=== PATIENT | male | born 1945 | race Caucasian/White ===

== ENCOUNTER → 2024-01-07 06:46 | Outpatient (REF) | payer OTHER, SELFPAY | LOC: MRI 06:46 | PROVIDERS: ATTENDING PHYSICIAN Orthopaedic Surgery; FAMILY PHYSICIAN Family Medicine | DX: M25.512 Pain in left shoulder (principal) | CPT/HCPCS: 73221 ==

== ENCOUNTER 2024-02-17 12:19 | Inpatient (IN) | payer OTHER, SELFPAY ==
[2024-02-17] VITALS (13 sets, daily range): BP systolic 81–140; BP diastolic 53–86; PULSE 105–116; BMI 34.9
--- NOTE | 2024-02-17 09:38 | ED.PDOC.TR ---
ED Provider Triage
-
Patient seen by provider in Triage?: Seen in Triage
78-year-old male presenting to the emergency department for evaluation of black stools x 24 hours. History of gastric ulcer. Had diarrhea at onset. Minimal p.o. intake over the last 12+ hours. Known to Dr. Crum from GI. No lightheaded/dizzy.
[place] 'clammy' yesterday. stating patient has looked pale. Labs ordered.
[2024-02-17] MEDS: NSS 1000 IV ×2 (10:07→16:14)
[2024-02-17 10:22] LABS: % Basophils 0.4 % (0-2); % Eosinophils 0.1 % (0-6); % Immature Granulocytes 0.7 % (0-0.5); % Lymphocytes 15.2 % (20.5-51.1); % Monocytes 7.6 % (1.7-9.3); Absolute Basophils 0.1 10^3/uL (0-0.2); Absolute Immature Granulocytes 0.1 10^3/uL (0-0.05); Absolute Lymphocytes 2.1 10^3/uL (1.2-3.4); Absolute Neutrophils 10.3 10^3/uL (1.4-6.5); Hematocrit 29.4 % (39.0-52.0); Hemoglobin 9.9 g/dL (13.0-18.0); Mean Corp Hgb Conc. 33.7 g/dL (33.0-37.0); Mean Corpuscular Hgb 30.8 pg (27.0-31.0); Mean Corpuscular Volume 91.6 fL (80.0-94.0); Nucleated Red Blood Cells % 0 % (-); Platelet Count 232 10^3/uL (130-400); Red Blood Cell Count 3.21 10^6/uL (4.70-6.10); Red Cell Dist. Width 13.7 % (11.5-14.5); White Blood Cell Count 13.6 10^3/uL (4.8-10.8)
[2024-02-17 10:26] LABS: ALT (SGPT) 27 U/L (0-50); AST (SGOT) 22 U/L (17-59); Albumin 3.7 g/dl (3.5-5.0); Alkaline Phosphatase 65 U/L (38-126); Blood Urea Nitrogen 84 mg/dl (9-20); Carbon Dioxide 18 mmol/L (22-30); Chloride 114 mmol/L (98-107); Estimated Creatinine Clearance 34 ml/min; Glucose 177 mg/dl (70-99); INR 1.08; PT 14.1 Sec (11.4-14.6); Potassium 5.3 mmol/L (3.5-5.1); Sodium 143 mmol/L (135-145); Total Bilirubin 0.9 mg/dl (0.2-1.3); Total Protein 6.2 g/dl (6.3-8.2); eGFR 33.74
--- NOTE | 2024-02-17 10:56 | ED.GENMED ---
History of Present Illness
General
Chief Complaint: Rectal Bleeding
Source: patient
Exam Limitations: none
Time Seen by Provider: 02/17/24 10:52
Nursing documentation reviewed up to this point in time: agreed with
Travel History
Have you had any contact with someone who has COVID-19?: No
Do you have any symptoms of coronavirus? Fever > 100 degrees, chills, cough, shortness of breath, sore throat, loss of taste or smell, muscle aches, or headache?: No
History of Present Illness
History of Present Illness:
Patient is a 78-year-old male who presents to the ER with rectal bleeding. Patient started Wednesday night with black stool intermittent diarrhea and formed stool. He also vomited a little bit Wednesday night which was black in color. He is not on
blood thinners. Patient does have a history of previous GI bleed from Jose A lesions and hiatal hernia. He has a history of chronic kidney disease stage III AL bypass. He is not on blood thinners. He denies any abdominal pain.
Past History
Past History
ED Past Medical History: CAD and HTN
Social History
Tobacco: Non-smoker
Alcohol: None
Drug: None
Review of Systems
Review of Systems
Allergies reviewed?: Yes
All Other Systems: ROS reviewed and negative except as documented in HPI and ROS
Constitutional: Reports no symptoms
Respiratory: Reports no symptoms; Denies trouble breathing
Cardiac: Reports no symptoms
ABD/GI: Reports nausea, vomiting, bloody stools and other (vomited once black emesis )
: Reports no symptoms
Skin: Reports no symptoms
Neurological: Reports no symptoms
Psychiatric: Reports no symptoms
Phy Exam
General Physical Exam
General Presentation: no apparent distress
General age: appears stated age
General Skin: warm and dry
General Habitus: normal
General Mental: alert
General Hydration: appears well hydrated
Gastrointestinal Exam
Gastrointestinal Exam: non tender, soft and other (stool is black heme positive no active bleeding )
Neurological Exam
Neurological Exam: alert and oriented x3
Musculoskeletal Exam
Musculoskeletal Exam: full ROM
Skin Exam
Skin Exam: normal color and warm/dry
Psychiatric Exam
Psychiatric Exam: normal mood/affect
Course
Orders/Labs/Results
Orders:
Orders
02/17/24 09:41
Electrocardiogram (*1) Urgent
Reason for Study: Tachycardia
EKG- Treatment ONCE
02/17/24 09:53
Type+Screen Urgent
Complete Blood Count/With Diff Urgent
Comprehensive Metabolic Panel Urgent
Glycohemoglobin (HgbA1c) Urgent
PTT Urgent
Prothrombin Time Urgent
02/17/24 Lunch
NPO
Allow oral meds: Yes
Allow clear liquids: No
NPO with Ice Chips: Yes
02/17/24 10:06
0.9% Sodium Chloride 1000 ml [Nss] 1,000 ml IV BOLUS
02/17/24 11:08
Pantoprazole 80 mg/100 ml Nss [Protonix] 80 mg in 100 ml IV NOW
Pantoprazole [Protonix IV] 40 mg IV NOW STA
02/17/24 11:44
Add On- LAB Routine
Tests Added?: HBA1C
02/17/24 12:07
Admit/Transfer Patient As Directed
Co-Sign Provider:
Level of Care: Inpatient admission
Assign to:: IMU- Intermediate Care
Physician / Group: Hospitalist
Diagnosis: Melena
Reason for Hospitalization: Melena, Anemia, Tachy
Expected length of stay greater than two midnights?: Yes
ELOS- Estimated Length of Stay in days: 2
I certify the patient meets the requirements for IP care: Yes
02/17/24 12:10
Code Status As Directed
Resuscitation Status: Full Code
02/17/24 14:13
H&H Q8H
0.9% Sodium Chloride 1000 ml [Nss] 1,000 ml IV 80 mls/hr
02/17/24 14:13
GASTROINTESTINAL CONSULT Routine
Consulting Provider: Oswaldo Santiago
Was physician already notified: Yes
Reason for consult: melena
Activity As Directed
Activity Level: With Assistance
Bedside Commode
INT (Intravenous Needle Therapy) As Directed
Comment: Place 2 IV catheters of the largest bore possible until stable
Orthostatic Vital Signs As Directed
Orthostatic VS Frequency: Now
Comment: then every four hours for twenty-four hours
Pneumatic Compression Sleeves As Directed
Type: Knee high
Vital Signs As Directed
Frequency: Per unit guidelines
DX Deep Vein Thrombosis Video Routine
02/17/24 22:13
H&H Q8H
02/18/24 06:00
Basic Metabolic Panel IN AM
Complete Blood Count/No Diff IN AM
02/18/24 06:13
H&H Q8H
02/18/24 08:00
Atorvastatin [Lipitor] 20 mg PO DAILY
Metoprolol Xl [Toprol Xl] 50 mg PO DAILY
Abnormal Lab Results
02/17/24
09:53
WBC 13.6 H 10^3/uL
(4.8-10.8)
RBC 3.21 L 10^6/uL
(4.70-6.10)
Hgb 9.9 L g/dL
(13.0-18.0)
Hct 29.4 L %
(39.0-52.0)
MPV 11.0 H fL
(7.4-10.4)
Abs Immat Gran (auto) 0.1 H 10^3/uL
(0-0.05)
Absolute Neuts (auto) 10.3 H 10^3/uL
(1.4-6.5)
Absolute Monos (auto) 1.0 H 10^3/uL
(0.1-0.6)
Immature Gran % 0.7 H %
(0-0.5)
Neutrophils % 76.0 H %
(42.2-75.2)
Lymphocytes % 15.2 L %
(20.5-51.1)
APTT 22.0 L Sec
(23.4-35.0)
Potassium 5.3 H mmol/L
(3.5-5.1)
Chloride 114 H mmol/L
(98-107)
Carbon Dioxide 18 L mmol/L
(22-30)
BUN 84 H mg/dl
(9-20)
Creatinine 2.0 H mg/dL
(0.7-1.3)
Glucose 177 H mg/dl
(70-99)
Hemoglobin A1c 6.2 H %
(4.0-5.6)
Total Protein 6.2 L g/dl
(6.3-8.2)
02/17/24 09:53
02/17/24 09:53
Vital Signs
Initial and Last Documented VS:
Initial Vital Signs
Temp Pulse Resp BP Pulse Ox
98.4 F 150 18 140/86 100
02/17/24 09:37 02/17/24 09:37 02/17/24 09:37 02/17/24 09:37 02/17/24 09:37
Last Documented Vital Signs
Temp Pulse Resp BP Pulse Ox
98.4 F 125 24 134/81 99
02/17/24 09:37 02/17/24 13:45 02/17/24 13:45 02/17/24 11:00 02/17/24 13:45
MDM/Problems Addressed
Differential Diagnosis Includes:
Not limited to anemia GI bleed
MDM/Problems Addressed:
Patient is a 78-year-old male with history of GI bleed presents with black stool since Wednesday. He presented tachycardic in triage fluids were given in triage prior to my exam. Patient labs and typed and screened prior to my exam. He is awake
alert he is answering questions and stable. Heart rate still remains tachycardic in the 130s. His hemoglobin is 9.9. Last hemoglobin as per was 13 3 weeks ago as an outpatient. On rectal exam patient has black stool but no active bleeding.
He has stable abdomen soft nontender. IV Protonix bolus and drip ordered type and screen ordered patient mid to the hospital service.
*Critical Care Note
Total Time (30-74mins, 75-104mins- exclusive of procedures): Not Applicable
ED Attending Note
-
Portions of this chart may have been created with voice recognition software.� Occasional wrong word or��sound alike� substitutions may have occurred due to the inherent limitations of voice recognition software.
Discharge Plan
Departure
Patient Disposition: Admit
Date of Disposition: 02/17/24
Time of Disposition: 11:10
Admit to: ICU
Admit to doctor: hospitalist
Presentation/result/management discussed w/ accepting MD/DO: Hospitalist
Patient with high blood pressure during this ER visit?: Yes
Condition: Fair
Covid-19: Not Applicable
Discharge Problem:
Acute GI bleeding
Interventions
Interventions:
*Risk Screen - Suicide Last Done: 02/17/24 14:11
*General Assessment Last Done: 02/17/24 14:11
*Neglect/Abuse Screening Last Done: 02/17/24 14:11
*Nursing Disposition Last Done: 02/17/24 14:11
XM-Mcpxzx-Itvmtogxsl Assessment Last Done: 02/17/24 09:56
ED- Cardiac Assessment Last Done: 02/17/24 09:55
Discharge Date and Time
Discharge Date/Time: 02/17/24 14:12
[2024-02-17] MEDS: PROTONIX IV 40 MG IV (11:28)
[2024-02-17] MEDS: PROTONIX 100 IV ×2 (11:28→16:21)
--- NOTE | 2024-02-17 11:35 | HPS.HSE ---
Addendum entered and electronically signed by Arnold Quiñones MD 02/18/24 16:22:
Correction- Left shoulder tear not right shoulder
Original Note:
Family Physician
-
Family Physician: Ricky Garzon
Chief Complaint
-
Black stools and tachycardia
History of Present Illness
78-year-old male presented to the ER with black stools which started Wednesday . Started with vomiting. He also had some vomiting on Wednesday night which is black. He has a history of GI bleed from Jose A lesions and hiatal hernia. Patient does
not take any anticoagulants. He is on aspirin. No NSAID use. No Chest pain or dizziness. Family reports his Hb was 13 a couple weeks ago
Medical History
Past Medical History
Past Medical History: Reports Other
Additional Past Medical History:
Coronary artery disease, hypertension, hyperlipidemia, history of GI bleed with Jose A lesions, hearing impairment, chronic kidney disease, hiatal hernia, cholelithiasis, nephrolithiasis, atrophic changes of the left kidney
Past Surgical History: Reports Other
Additional Past Surgical History:
History of CABG, history of abdominal surgery NOS
Social History
Tobacco: Former Smoker
Alcohol: Occasional
Drug: None
Personal:
Living: With Family
Employment: Retired
Family History
Family History: CAD (brother) and Other (Parkinson Mom)
Allergies / Home Medications
Allergies reflects when Allergies were last updated in [facility].
Home Medications with original date entered in [facility]
Allergy/Medication List:
Allergies
Allergy/AdvReac Type Severity Reaction Status Date / Time
No Known Allergies Allergy Unverified 04/23/20 20:52
Home Medications
aspirin 81 mg tablet,delayed release 81 mg PO DAILY Blood clot prevention/tx 04/24/20
atorvastatin 20 mg tablet 20 mg PO DAILY High cholesterol 04/24/20
metoprolol succinate 50 mg tablet,extended release 24 hr 50 mg PO DAILY Heart disease/condition 04/24/20
losartan 25 mg tablet 25 mg PO DAILY Blood Pressure 05/24/23
pantoprazole 40 mg tablet,delayed release 40 mg PO DAILY 02/17/24
Review of Systems
-
History Source: Patient
A 12 point ROS was completed and negative except as noted: Yes
Respiratory: Denies Trouble Breathing
Cardiac: Denies Chest Pain or Diaphoresis
Abdomen/GI: Reports Nausea, Vomiting, Black Stools and Anorexia; Denies Abdominal Pain
Physical Exam
Vital Signs
Vital Signs
Temp Pulse Resp BP Pulse Ox
98.4 F 132 18 132/80 100
02/17/24 09:37 02/17/24 10:56 02/17/24 09:37 02/17/24 10:55 02/17/24 10:56
Physical Exam
General: No Apparent Distress and Conversant
Respiratory: Clear
Cardiac: S1/S2, Regular Rhythm and Tachycardia
GI: Soft, Non Tender and Normal Bowel Sounds
Musculoskeletal: No Edema
Neuro: AO x 3 and Nonfocal/grossly intact
Psych: Intact Judgment/Insight
Laboratory Results
-
02/17/24 09:53
02/17/24 09:53
Laboratory Results
PT 14.1 Sec (11.4-14.6) 02/17/24 09:53
INR 1.08 02/17/24 09:53
APTT 22.0 Sec (23.4-35.0) L 02/17/24 09:53
Total Bilirubin 0.9 mg/dl (0.2-1.3) 02/17/24 09:53
AST 22 U/L (17-59) 02/17/24 09:53
ALT 27 U/L (0-50) 02/17/24 09:53
Alkaline Phosphatase 65 U/L (38-126) 02/17/24 09:53
Impression/Plan
-
IMPRESSION/PLAN:
# Melena
Admit to IMU
Type and screen
Monitor H&H Q8H
History of Jose A lesions in the past.
Has history of hiatal hernia
Patient is not on any anticoagulants. On aspirin only.
No NSAID use
PPI drip to be continued
GI consultation requested for EGD
IV fluids, keep n.p.o.
# Anemia-acute on chronic likely secondary to CKD and acute blood loss anemia from GI bleed
# Coronary disease-With history of CABG at [facility]
on aspirin, statin, metoprolol-continue as tolerated
Hold losartan
# History of enlarged peripancreatic lymph node on CT 09/23/2023
# Right shoulder full-thickness tear of the supraspinatus with tendinosis of the distal infraspinatus
# Hyperlipidemia-continue statin
# Hypertension-continue losartan and metoprolol
# Chronic kidney disease stage III-unclear reasons
Mild hyperkalemia noted. Hold losartan
# Left atrophic kidney/nephrolithiasis
# Cholelithiasis
# Obesity per BMI criteria
# DVT prophylaxis-SCDs
# CODE STATUS- Full
D/W ER attending
D/W at bed side
D/W GI
time 76 min
--- NOTE | 2024-02-17 13:43 | CON.GI ---
Addendum entered and electronically signed by Oswaldo Santiago MD 02/17/24 16:30:
I saw and examined the patient.
The INSPECTOR SHELLS or PA's note was reviewed and I agree with the note.
Comment:
Pt is a 78 y/o man with a CAD, htn, hiatal hernia, colin lesions with black stools, no abd pain, an episode of emesis. In ER tachycardic but hgb stable from baseline
abd: soft, nontender
impression:
tachycardia
leukocytosis
?melena
plan:
monitor hgb
EGD tomorrow
tachycardia does not seem all due to GI causes (and he did stop his metoprolol) and he does have a leukocytosis
PPI
clear liquids ok for now.
Original Note:
Consultation
-
Date/Time Consultation Requested: 02/17/24 1130
Date/Time Consultation Performed: 02/17/24 1345
Requesting Provider: Arnold Quiñones MD
Performing Provider: NIURKA Pop , Oswaldo Sands MD
Reason for Consultation: Gi bleeding
Medical History
Chief Complaint / HPI
Chief Complaint: black stools
History of Present Illness:
Pt is a 78yo with hx CAD prior CABG, CKD, HTN, hyperlipidemia, obesity, GI bleed with known large HH and colin lesions, nunez's with onset of black stools since Wednesday. Pt had 3-5 stools some loose and some with form with last stool hours
prior to admission and small amount of dark emesis. He denies NSAID or anticoagulation use. He is also noted with tachycardia on admission and admits he held all of his medication including cardiac med for past few days. On admission hbg 9.9, BuN
84 (baseline variable 30-90) with prior hbg 13 on 02/02/24.
Pt admits to occasional GERD with some symptoms Wednesday night but is no Protonix prior to admission He otherwise denies dysphagia, abdominal pain, dizziness, or red blood in stools. Hx EGD 07/2023 with Z line regular, 7 cm HH, normal
stomach and duodenum. Colonoscopy -07/2023- diverticulosis, 2 less than 1 mm polyps in rectum and cecum. 3 non bleeding colonic angiectasias. Internal hemorrhoids. 09/2023 CT with large HH greater than 50% stomach in lower chest.
Past Medical History
Past Medical History: CAD, HTN, Renal Failure (CKD) and Other (obesity, colin lesions, large HH, barett's esophagus, colon polyps )
Past Surgical History: Cardiac (CABG) and Other (hernia repair, cholelithasis)
Social History
Tobacco: Former Smoker (40 years ago )
Alcohol: Occasional (rare)
Drug: None
Personal:
Living: With Family
Employment: Retired
Family History
Family History: Other (no family hx colon Ca or polyps)
Allergies / Home Medications
Allergy/AdvReac Type Severity Reaction Status Date / Time
No Known Allergies Allergy Unverified 04/23/20 20:52
�Medication �Instructions �Recorded
aspirin 81 mg tablet,delayed 81 mg PO DAILY Blood clot 04/24/20
release prevention/tx
atorvastatin 20 mg tablet 20 mg PO DAILY High cholesterol 04/24/20
metoprolol succinate 50 mg 50 mg PO DAILY Heart 04/24/20
tablet,extended release 24 hr disease/condition
losartan 25 mg tablet 25 mg PO DAILY Blood Pressure 05/24/23
pantoprazole 40 mg tablet,delayed 40 mg PO DAILY 02/17/24
release
Review of Systems
-
History Source: Patient
Constitutional: Reports No Symptoms
EENT: Reports No Symptoms
Respiratory: Reports No Symptoms
Abdomen/GI: Reports Nausea, Vomiting and Black Stools
: Reports No Symptoms
Musculoskeletal: Reports No Symptoms
Skin: Reports No Symptoms
Neurological: Reports Weakness
Endocrine: Reports No Symptoms
Hematologic/Lymphatic: Reports Bleeding
Vital Signs
Temp Pulse Resp BP Pulse Ox
98.4 F 132 18 132/80 100
02/17/24 09:37 02/17/24 10:56 02/17/24 09:37 02/17/24 10:55 02/17/24 10:56
Physical Exam
Exam
General: Well Developed, Well Nourished and No Apparent Distress
HEENT: Normocephalic and Anicteric
Respiratory: Clear
Cardiac: Other (tachy 120-130 regular on monitor )
GI: Soft, Non Tender and Non Distended
Musculoskeletal: No Clubbing
Skin: Warm and Dry
Neuro: Awake, Alert and AO x 3
Psych: Calm
Results
WBC 13.6 10^3/uL (4.8-10.8) H 02/17/24 09:53
Hgb 9.9 g/dL (13.0-18.0) L 02/17/24 09:53
Hct 29.4 % (39.0-52.0) L 02/17/24 09:53
MCV 91.6 fL (80.0-94.0) 02/17/24 09:53
Plt Count 232 10^3/uL (130-400) 02/17/24 09:53
Absolute Neuts (auto) 10.3 10^3/uL (1.4-6.5) H 02/17/24 09:53
PT 14.1 Sec (11.4-14.6) 02/17/24 09:53
INR 1.08 02/17/24 09:53
APTT 22.0 Sec (23.4-35.0) L 02/17/24 09:53
Sodium 143 mmol/L (135-145) 02/17/24 09:53
Potassium 5.3 mmol/L (3.5-5.1) H 02/17/24 09:53
Chloride 114 mmol/L (98-107) H 02/17/24 09:53
Carbon Dioxide 18 mmol/L (22-30) L 02/17/24 09:53
BUN 84 mg/dl (9-20) H 02/17/24 09:53
Creatinine 2.0 mg/dL (0.7-1.3) H 02/17/24 09:53
Calcium 9.0 mg/dl (8.4-10.2) 02/17/24 09:53
Total Bilirubin 0.9 mg/dl (0.2-1.3) 02/17/24 09:53
AST 22 U/L (17-59) 02/17/24 09:53
ALT 27 U/L (0-50) 02/17/24 09:53
Alkaline Phosphatase 65 U/L (38-126) 02/17/24 09:53
Diagnostic Image Results:
09/2023 CT Chest/abd Wo Iv Cont
1. Large hiatal hernia. Greater than 50% of the stomach within the lower chest. Short segment of the proximal splenic artery within the hernia sac as above.
2. Cholelithiasis.
3. As above, enlarged peripancreatic lymph node. Indeterminate etiology. No abnormal focal pancreatic lesion identified at noncontrast CT. As warranted, consider further evaluation with contrast-enhanced MRI.
4. Atrophic changes left kidney. Nonobstructive left nephrolithiasis. Bilateral renal cysts without suspicious features.
5. Left-sided inferior vena cava, normal anatomic variation.
Prior GI Procedures:
EGD: 07/2023 with Z line regular, 7 cm HH, normal stomach and duodenum. bx + intestinal metaplasia neg dysplasia
Colonoscopy: -07/2023- diverticulosis, 2 less than 1 mm polyps in rectum and cecum. 3 non bleeding colonic angiectasias. Internal hemorrhoids. bx HP polyps
Assessment / Plan
-
Pt is a 78yo with hx CAD prior CABG, CKD, HTN, hyperlipidemia, obesity, GI bleed with HH with colin lesions, nunez's with onset of black stools since Wednesday. Pt had 3-5 stools some loose and some with form with last stool hours prior to
admission and small amount of dark emesis. He denies NSAID or anticoagulation use. He is also noted with tachycardia on admission and admits he held all of his medication including cardiac med for past few days prior to admission. On admission
hbg 9.9, BuN 84 (baseline variable 30-90) with prior hbg 13 on 02/02/24. Hx EGD 07/2023 with Z line regular, 7 cm HH, normal stomach and duodenum. Colonoscopy -07/2023- diverticulosis, 2 less than 1 mm polyps in rectum and cecum. 3 non bleeding
colonic angiectasias. Internal hemorrhoids. 09/2023 CT with large HH greater than 50% stomach in lower chest. No NSAIDs or anticoagulation prior to admission.
-melena
-tachycardia
-hx large HH
-GI bleed with prior colin lesions
-nunez's esophagus
other medical problems:
-CAD prior CABG
-CKD
-HTN
-hyperlipidemia
-obesity
-cholelithiasis
-nephrolithiasis
PLAN:
etiology of GI bleeding likely oozing from know colin lesions, PUD vs other
also noted HR 120-130 since admission and admits to not taking cardiac med last few days
reviewed with and Dr. Fischer as last stool hours prior to admission will restart cardiac meds to better control heart rate and plan for EGD in AM
pt agreeable to plan
trend hbg and stool record
ok for clear diet today then NPO in AM
PPI gtt
NSAID avoidance
-
-
Thank you for consultation and allowing me to participate in the patient's care. Please call the loss prevention specialist GI physician during the after hours with any questions or concerns.
[2024-02-17 14:33] LABS: Glycohemoglobin (HgbA1c) 6.2 % (4.0-5.6)
[2024-02-17] MEDS: TOPROL XL 50 MG PO (16:14)
[2024-02-17 17:02] LABS: Hematocrit 24.6 % (39.0-52.0); Hemoglobin 8.2 g/dL (13.0-18.0)
[2024-02-17 22:20] LABS: Hemoglobin 7.7 g/dL (13.0-18.0)
[2024-02-18] VITALS (32 sets, daily range): BP systolic 12–128; BP diastolic 35–88; PULSE 95–103; BMI 34.7
[2024-02-18] MEDS: PROTONIX 100 IV (03:57)
[2024-02-18] MEDS: NSS 1000 IV ×2 (03:57→11:52)
[2024-02-18 06:03] LABS: Mean Corp Hgb Conc. 33.3 g/dL (33.0-37.0); Mean Corpuscular Hgb 30.9 pg (27.0-31.0); Mean Corpuscular Volume 92.7 fL (80.0-94.0); Mean Platelet Volume 10.6 fL (7.4-10.4); Platelet Count 164 10^3/uL (130-400); Red Cell Dist. Width 13.7 % (11.5-14.5); White Blood Cell Count 6.8 10^3/uL (4.8-10.8)
[2024-02-18 06:05] LABS: Hematocrit 20.4 % (39.0-52.0); Hemoglobin 6.8 g/dL (13.0-18.0)
[2024-02-18 06:23] LABS: Blood Urea Nitrogen 60 mg/dl (9-20); Calcium 8.1 mg/dl (8.4-10.2); Carbon Dioxide 20 mmol/L (22-30); Chloride 118 mmol/L (98-107); Estimated Creatinine Clearance 38 ml/min; Glucose 118 mg/dl (70-99); Potassium 4.9 mmol/L (3.5-5.1); Sodium 142 mmol/L (135-145); eGFR 38.29
--- NOTE | 2024-02-18 08:57 | PTCARENOTE ---
1 unit PRBCs ordered, pt educated regarding plan of care and PRBCS infusion. Verification per policy with 2nd RN completed. S/S of transfusion reaction reviewed with pt and pt verbalizes understanding.Infusion begun at 0845, RN at bedside
--- NOTE | 2024-02-18 09:05 | PTCARENOTE ---
Spoke with GI lab and plan for EGD did later this morning. Pt updated with this information
[2024-02-18] MEDS: TOPROL XL 50 MG PO (09:17)
[2024-02-18] MEDS: LIPITOR 20 MG PO (09:17)
--- NOTE | 2024-02-18 11:27 | PTCARENOTE ---
Patient transported to GI lab with this RN accompanied. Unit of PRBCs completed and no reactions noted/ Vitals signs obtained and documented in TAR
--- NOTE | 2024-02-18 13:08 | PTCARENOTE ---
Patient returned from GI lab, he is awake and talkative. at bedside and she received update from Dr. Gramajo via phone. Pt is swallowing without difficulty, appropriate and ordering clear liq diet. Both pt and express understanding for
Clears. 2nd unit PRBCs started at this time with 2nd RN verification. Reviewed s/s of reaction with pt, he and he verbalizes understanding as well as of plan of care through the weekend.
[2024-02-18] MEDS: PROTONIX 40 MG PO ×2 (13:26→20:29)
--- NOTE | 2024-02-18 15:03 | W.PN.HOSP.TC ---
Today's Communication/Plan
-
clears
watch Hb
Assessment / Plan
Assessment / Plan
CVS: S1-S2 normal
Chest: CTA B/L
Abdomen: Soft, NT / Bowel sounds present
Extremities: No edema, normal pulses
TEST CARRIER: Non focal exam
# Melena
Endoscopy 02/18/2024-esophagus no lesions, Z-line irregular, large hiatal hernia erosions and erythema in the hernia sac and no active bleeding. Duodenum was normal under the second portion. No old or fresh blood
2 units of packed red blood cells 02/12/2024 then repeat hemoglobin
If needs to bleed or hemoglobin drops may need a colonoscopy
Patient is not on any anticoagulants. On aspirin only.
No NSAID use
PPI drip to be continued
Clear liquids
# Anemia-acute on chronic likely secondary to CKD and acute blood loss anemia from GI bleed
# Coronary disease-With history of CABG at [facility]
on aspirin, statin, metoprolol-continue as tolerated
Hold losartan
# History of enlarged peripancreatic lymph node on CT 09/23/2023
# Left shoulder full-thickness tear of the supraspinatus with tendinosis of the distal infraspinatus
# Hyperlipidemia-continue statin
# Hypertension-continue losartan and metoprolol
# Chronic kidney disease stage III-unclear reasons
Mild hyperkalemia noted. Hold losartan
# Left atrophic kidney/nephrolithiasis
# Cholelithiasis
# Obesity per BMI criteria
# DVT prophylaxis-SCDs
# CODE STATUS- Full
Anticipated Discharge: Within 24 hours
Subjective/Interval History
-
Date of Service: February 18, 2024
Objective Data
-
Labs:
Laboratory Results
02/18/24 02/18/24
05:43 13:35
WBC 6.8
Hgb 6.8 L* Pending
Hct 20.4 L* Pending
Plt Count 164 D
Sodium 142
Potassium 4.9
Chloride 118 H
Carbon Dioxide 20 L
BUN 60 H
Creatinine 1.8 H
Glucose 118 H
Calcium 8.1 L
Vital Signs:
Vital Signs
Temp Pulse Resp BP Pulse Ox
98.3 F 94 28 120/80 96
02/18/24 13:21 02/18/24 13:21 02/18/24 13:21 02/18/24 13:21 02/18/24 13:00
I&O
02/17/24 02/18/24 02/19/24
06:59 06:59 06:59
Intake Total 960 / 960 900 / 900
Output Total 1150 / 1150 450 / 450
Balance -190 / -190 450 / 450
[2024-02-18] MEDS: PROTONIX IV (15:41)
--- NOTE | 2024-02-18 15:50 | CM ---
Patient with Dx GI bleed, anemia, Right shoulder full-thickness tear of the supraspinatus with tendinosis. Receiving IVF. Clear liquids. EGD today.
Met with patient who resides with his in a first floor condo apartment.
The patient has been independent in ADLs and ambulation.
He says he is currently going to Outpatient therapy for a left shoulder tendon tear.
DME - CPAP that he is not using
Prior [facility].
PCP - Ricky Garzon
Pharmacy - [facility]
No CM d/c needs identified.
Plan home.
--- NOTE | 2024-02-18 16:44 | PTCARENOTE ---
Patient tolerated 2nd unit RBCs without event or reaction. IVF resumed and will obtain H/H
[2024-02-18 18:06] LABS: Hematocrit 30.7 % (39.0-52.0)
[2024-02-18 18:33] LABS: Hemoglobin 10.3 g/dL (13.0-18.0)
[2024-02-19] VITALS (15 sets, daily range): BP systolic 100–125; BP diastolic 52–96; PULSE 83–87; O2SAT 96–97
--- NOTE | 2024-02-19 03:27 | PTCARENOTE ---
Received at change of shift sitting up at side of bed. Back and forth overnight from bed to chair. Currently in chair. Denies any pain or discomfort. Very thankful for all care. IVF's infusing as ordered. VSS. Afebrile. SR/PVC on CM rate 80-90's.
Using urinal at beside. Hgb at change of shift 10.3 after transfusion. No BM. Pt offers no complaints. Rest of assessment as documented. Call dang within reach. Will continue to monitor.
[2024-02-19 05:09] LABS: Hematocrit 27.7 % (39.0-52.0); Hemoglobin 9.7 g/dL (13.0-18.0); Mean Corpuscular Hgb 30.8 pg (27.0-31.0); Mean Corpuscular Volume 87.9 fL (80.0-94.0); Mean Platelet Volume 10.6 fL (7.4-10.4); Platelet Count 152 10^3/uL (130-400); Red Blood Cell Count 3.15 10^6/uL (4.70-6.10); Red Cell Dist. Width 14.9 % (11.5-14.5); White Blood Cell Count 5.6 10^3/uL (4.8-10.8)
[2024-02-19 05:51] LABS: Blood Urea Nitrogen 38 mg/dl (9-20); Calcium 8.1 mg/dl (8.4-10.2); Carbon Dioxide 20 mmol/L (22-30); Chloride 116 mmol/L (98-107); Estimated Creatinine Clearance 42 ml/min; Glucose 129 mg/dl (70-99); Potassium 4.6 mmol/L (3.5-5.1); Sodium 142 mmol/L (135-145)
[2024-02-19] MEDS: PROTONIX 40 MG PO ×2 (07:41→19:28)
[2024-02-19] MEDS: LIPITOR 20 MG PO (07:42)
[2024-02-19] MEDS: TOPROL XL 50 MG PO (07:45)
--- NOTE | 2024-02-19 10:25 | W.PN.HOSP.TC ---
Addendum entered and electronically signed by Arnold Quiñones MD 02/19/24 15:25:
D/W GI-OK for discharge if tolerating diet.
Discharge coordination time 32 min
Original Note:
Today's Communication/Plan
-
Advance diet if okay with GI
Restart aspirin when okay with GI
1 dose of Lasix
Surgigrip's
Ambulate
Discharge planning per GI
Assessment / Plan
Assessment / Plan
CVS: S1-S2 normal
Chest: CTA B/L
Abdomen: Soft, NT / Bowel sounds present
Extremities: Mild B/L edema (Chronic per pt)
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
# Melena
Endoscopy 02/18/2024-esophagus no lesions, Z-line irregular, large hiatal hernia erosions and erythema in the hernia sac and no active bleeding. Duodenum was normal under the second portion. No old or fresh blood
2 units of packed red blood cells 02/18/2024
If needs to bleed or hemoglobin drops may need a colonoscopy
Patient is not on any anticoagulants. On aspirin only.Restart when OK with GI
No NSAID use
PPI drip to be continued
Clear liquids
No further bleeding or bowel movements.
I have reached out to GI to see if we can advance diet
# Anemia-acute on chronic likely secondary to CKD and acute blood loss anemia from GI bleed
# Coronary disease-With history of CABG at [facility]
On aspirin, statin, metoprolol-continue as tolerated
Hold losartan as BP on the low side
# History of enlarged peripancreatic lymph node on CT 09/23/2023
# Left shoulder full-thickness tear of the supraspinatus with tendinosis of the distal infraspinatus
# Hyperlipidemia-continue statin
# Hypertension-continue losartan and metoprolol
# Chronic kidney disease stage III-unclear reasons
Mild hyperkalemia noted. Hold losartan
Mild edema
Will give 20 mg Lasix
# Left atrophic kidney/nephrolithiasis
# Cholelithiasis
# Obesity per BMI criteria
# DVT prophylaxis-SCDs
# CODE STATUS- Full
D/W GI
D/W RN
D/W Pt's from his cell phone at bed side
Anticipated Discharge: Within 24 hours
Subjective/Interval History
-
Date of Service: February 19, 2024
Objective Data
-
Labs:
Laboratory Results
02/19/24
04:55
WBC 5.6
Hgb 9.7 L
Hct 27.7 L
Plt Count 152
Sodium 142
Potassium 4.6
Chloride 116 H
Carbon Dioxide 20 L
BUN 38 H
Creatinine 1.6 H
Glucose 129 H
Calcium 8.1 L
Vital Signs:
Vital Signs
Temp Pulse Resp BP Pulse Ox
98.0 F 100 31 108/52 96
02/19/24 07:38 02/19/24 08:00 02/19/24 08:00 02/19/24 08:00 02/19/24 09:32
I&O
02/18/24 02/19/24 02/20/24
06:59 06:59 06:59
Intake Total 960 / 960 4240 / 4240 420 / 420
Output Total 1150 / 1150 1725 / 1725
Balance -190 / -190 2515 / 2515 420 / 420
[2024-02-19] MEDS: LASIX 20 MG IV (11:58)
[2024-02-19] MEDS: ASPIR LOW (ENTERIC COATED) 81 MG PO (11:59)
--- NOTE | 2024-02-19 12:38 | PTCARENOTE ---
Patient being transferred to med/surg 337-2, report given to Omero. Patient updated with plan of care. 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
--- NOTE | 2024-02-19 13:00 | TRANSFER ---
pt arrives via wheelchair. stand by assist to bedside chair. pt ordering lunch. [id number]. care plan continues to be followed.
--- NOTE | 2024-02-19 15:24 | W.DS.TRANS ---
Addendum entered and electronically signed by Arnold Quiñones MD 02/19/24 15:28:
Dictation- [id number]
Original Note:
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
-
Discharge Instructions:
Discharge Diagnosis/Procedures Hiatal hernia with erosions and GI bleed, anemia
, coronary artery disease, high cholesterol,
hypertension, chronic kidney disease
Diet As tolerated
Activity As tolerated
Driving Restrictions As prior to admission
Blood Work CBC 2 weeks. Hemoglobin A1c 6 months
Instructions:
Stand-Alone Forms:
Changes to Home Medications: Yes
Discharge Medications:
DC Medications w/original date entered in [facility]
atorvastatin 20 mg tablet 20 mg PO DAILY High cholesterol 04/24/20
metoprolol succinate 50 mg tablet,extended release 24 hr 50 mg PO DAILY Heart disease/condition 04/24/20
losartan 25 mg tablet 25 mg PO DAILY Blood Pressure 05/24/23
aspirin 81 mg tablet,delayed release 81 mg PO DAILY Blood Clot Prevention/Tx 02/18/24
pantoprazole 40 mg tablet,delayed release 40 mg PO BID Gastrointestinal issue #30 tabs 02/19/24
Home Medication Changes
changed PPI to BID
Pending Results: No
--- NOTE | 2024-02-19 16:10 | CM ---
CM met with pt. Remains without skilled dc needs at this time. IMM completed. Plan for dc today vs tomorrow per team.
Discharge dispo home no needs. Already does outpatient PT for shoulder.
--- NOTE | 2024-02-19 20:09 | W.PN.GI.CBS2 ---
Today's Communication / Plan
-
Recommendation: -Okay for low residue diet
- Use Protonix (pantoprazole) 40 mg PO BID.
- Monitor BM and if no further bleeding, then OP
capsule study given colonoscopy in july 2023
showed AVM but if still with black stool, then
inpatient colonoscopy.
- Monitor H/H and transfuse as needed.
Assessment / Plan
-
Pt is a 78yo with hx CAD prior CABG, CKD, HTN, hyperlipidemia, obesity, GI bleed with HH with colin lesions, nunez's with onset of black stools since Wednesday. Pt had 3-5 stools some loose and some with form with last stool hours prior to
admission and small amount of dark emesis. He denies NSAID or anticoagulation use. He is also noted with tachycardia on admission and admits he held all of his medication including cardiac med for past few days prior to admission. On admission
hbg 9.9, BuN 84 (baseline variable 30-90) with prior hbg 13 on 02/02/24. Hx EGD 07/2023 with Z line regular, 7 cm HH, normal stomach and duodenum. Colonoscopy -07/2023- diverticulosis, 2 less than 1 mm polyps in rectum and cecum. 3 non bleeding
colonic angiectasias. Internal hemorrhoids. 09/2023 CT with large HH greater than 50% stomach in lower chest. No NSAIDs or anticoagulation prior to admission.
-melena
-tachycardia
-hx large HH
-GI bleed with prior colin lesions
-nunez's esophagus
other medical problems:
-CAD prior CABG
-CKD
-HTN
-hyperlipidemia
-obesity
-cholelithiasis
-nephrolithiasis
EGD 02/18/2024- - No gross lesions in the entire esophagus.
- Z-line irregular, 32 cm from the incisors.
- Large hiatal hernia. Erosions and erythema.
- Normal examined duodenum.
- No specimens collected.
Recommendation: -Okay for low residue diet
- Use Protonix (pantoprazole) 40 mg PO BID.
- Monitor BM and if no further bleeding, then OP
capsule study given colonoscopy in july 2023
showed AVM but if still with black stool, then
inpatient colonoscopy.
- Monitor H/H and transfuse as needed.
Subjective
Subjective
Date of Service: February 19, 2024
Patient without any complaints, no bowel movements yet today
Objective
Data Reviewed
Laboratory Data:
Laboratory Results
02/19/24 04:55
02/19/24 04:55
Laboratory Results
PT 14.1 Sec (11.4-14.6) 02/17/24 09:53
INR 1.08 02/17/24 09:53
APTT 22.0 Sec (23.4-35.0) L 02/17/24 09:53
Total Bilirubin 0.9 mg/dl (0.2-1.3) 02/17/24 09:53
AST 22 U/L (17-59) 02/17/24 09:53
ALT 27 U/L (0-50) 02/17/24 09:53
Alkaline Phosphatase 65 U/L (38-126) 02/17/24 09:53
Vital Signs and I&O:
Vital Signs
Temp Pulse Resp BP Pulse Ox
97.8 F 95 16 123/62 97
02/19/24 15:00 02/19/24 15:00 02/19/24 15:00 02/19/24 15:00 02/19/24 15:00
I&O
02/18/24 02/19/24 02/20/24
06:59 06:59 06:59
Intake Total 960 / 960 4240 / 4240 690 / 690
Output Total 1150 / 1150 1725 / 1725
Balance -190 / -190 2515 / 2515 690 / 690
Physical Exam
Physical Exam
GI: Soft, Non Distended and Non Tender
[2024-02-20 07:30] VITALS: BP 125/67
[2024-02-20] MEDS: ASPIR LOW (ENTERIC COATED) 81 MG PO (08:15)
[2024-02-20] MEDS: PROTONIX 40 MG PO (08:15)
[2024-02-20] MEDS: LIPITOR 20 MG PO (08:15)
[2024-02-20] MEDS: TOPROL XL 50 MG PO (08:15)
--- NOTE | 2024-02-20 09:21 | W.PN.GI.CBS2 ---
Today's Communication / Plan
-
currently on low residue diet
Continue Protonix (pantoprazole) 40 mg PO BID.
Given no further bleeding, plan for OP capsule study
Okay to be to be discharged and our office will touch base to set up for small bowel capsule study.
Avoid NSAIDs.
Explained to the patient that if he has persistent black stool, he needs to come back to the emergency room.
Assessment / Plan
-
Pt is a 78yo with hx CAD prior CABG, CKD, HTN, hyperlipidemia, obesity, GI bleed with HH with colin lesions, nunez's with onset of black stools since Wednesday. Pt had 3-5 stools some loose and some with form with last stool hours prior to
admission and small amount of dark emesis. He denies NSAID or anticoagulation use. He is also noted with tachycardia on admission and admits he held all of his medication including cardiac med for past few days prior to admission. On admission
hbg 9.9, BuN 84 (baseline variable 30-90) with prior hbg 13 on 02/02/24. Hx EGD 07/2023 with Z line regular, 7 cm HH, normal stomach and duodenum. Colonoscopy -07/2023- diverticulosis, 2 less than 1 mm polyps in rectum and cecum. 3 non bleeding
colonic angiectasias. Internal hemorrhoids. 09/2023 CT with large HH greater than 50% stomach in lower chest. No NSAIDs or anticoagulation prior to admission.
-melena
-tachycardia
-hx large HH
-GI bleed with prior colin lesions
-nunez's esophagus
other medical problems:
-CAD prior CABG
-CKD
-HTN
-hyperlipidemia
-obesity
-cholelithiasis
-nephrolithiasis
EGD 02/18/2024- - No gross lesions in the entire esophagus.
- Z-line irregular, 32 cm from the incisors.
- Large hiatal hernia. Erosions and erythema.
- Normal examined duodenum.
- No specimens collected.
Plan :
currently on low residue diet
Continue Protonix (pantoprazole) 40 mg PO BID.
Given no further bleeding, plan for OP capsule study
Okay to be to be discharged and our office will touch base to set up for small bowel capsule study.
Avoid NSAIDs.
Explained to the patient that if he has persistent black stool, he needs to come back to the emergency room.
Subjective
Subjective
Date of Service: February 20, 2024
Patient doing well. No bowel movements. Tolerating diet
Objective
Data Reviewed
Laboratory Data:
Laboratory Results
02/19/24 04:55
Laboratory Results
PT 14.1 Sec (11.4-14.6) 02/17/24 09:53
INR 1.08 02/17/24 09:53
APTT 22.0 Sec (23.4-35.0) L 02/17/24 09:53
Total Bilirubin 0.9 mg/dl (0.2-1.3) 02/17/24 09:53
AST 22 U/L (17-59) 02/17/24 09:53
ALT 27 U/L (0-50) 02/17/24 09:53
Alkaline Phosphatase 65 U/L (38-126) 02/17/24 09:53
Vital Signs and I&O:
Vital Signs
Temp Pulse Resp BP Pulse Ox
97.9 F 78 16 125/67 96
02/20/24 07:30 02/20/24 07:30 02/20/24 07:30 02/20/24 07:30 02/20/24 07:30
I&O
02/19/24 02/20/24 02/21/24
06:59 06:59 06:59
Intake Total 4240 / 4240 1170 / 1170
Output Total 1725 / 1725
Balance 2515 / 2515 1170 / 1170
Physical Exam
Physical Exam
GI: Soft, Non Distended and Non Tender
[2024-02-20 10:49] LABS: % Basophils 0.3 % (0-2); % Eosinophils 2.5 % (0-6); % Immature Granulocytes 0.6 % (0-0.5); % Lymphocytes 14.1 % (20.5-51.1); % Monocytes 9.1 % (1.7-9.3); % Neutrophils 73.4 % (42.2-75.2); Absolute Eosinophils 0.2 10^3/uL (0-0.7); Absolute Monocytes 0.6 10^3/uL (0.1-0.6); Hematocrit 31.3 % (39.0-52.0); Hemoglobin 10.3 g/dL (13.0-18.0); Mean Corp Hgb Conc. 32.9 g/dL (33.0-37.0); Mean Corpuscular Volume 94.3 fL (80.0-94.0); Mean Platelet Volume 10.8 fL (7.4-10.4); Nucleated Red Blood Cells % 0.7 % (-); Platelet Count 181 10^3/uL (130-400); Red Blood Cell Count 3.32 10^6/uL (4.70-6.10); Red Cell Dist. Width 15.1 % (11.5-14.5); White Blood Cell Count 6.8 10^3/uL (4.8-10.8)
--- NOTE | 2024-02-20 11:04 | W.PN.HOSP.TC ---
Today's Communication/Plan
-
Tolerating diet
Outpatient CBC
Outpatient GI follow-up for capsule endoscopy
Assessment / Plan
Assessment / Plan
Gen: in NAD, Obese.
CVS: S1-S2 normal
Chest: CTA B/L
Abdomen: Soft, NT / Bowel sounds present
Extremities: Mild B/L edema (Chronic per pt)
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
Psych-pleasant.
# Melena
Endoscopy 02/18/2024-esophagus no lesions, Z-line irregular, large hiatal hernia erosions and erythema in the hernia sac and no active bleeding. Duodenum was normal under the second portion. No old or fresh blood
2 units of packed red blood cells 02/18/2024
If needs to bleed or hemoglobin drops may need a colonoscopy
Patient is not on any anticoagulants. restarted on aspirin
No NSAID use
PPI drip switched to twice daily.
No further bleeding or bowel movements.
Tolerating LR diet. Outpatient capsule endoscopy.
Hemoglobin uptrending 10.3.
GI evaluated okay for discharge.
# Anemia-acute on chronic likely secondary to CKD and acute blood loss anemia from GI bleed
# Coronary disease-With history of CABG at [facility]
On aspirin, statin, metoprolol-continue as tolerated
# History of enlarged peripancreatic lymph node on CT 09/23/2023
# Left shoulder full-thickness tear of the supraspinatus with tendinosis of the distal infraspinatus
# Hyperlipidemia-continue statin
# Hypertension-continue losartan and metoprolol
# Chronic kidney disease stage III-unclear reasons
Mild hyperkalemia noted.
Patient creatinine seems to be 1.8 last noticed in May last year
Creatinine was 3 on admission and now at 1.6.
Potassium stabilized.
Continue with losartan
# Left atrophic kidney/nephrolithiasis
# Cholelithiasis
# Obesity per BMI criteria
# DVT prophylaxis-SCDs
# CODE STATUS- Full
Anticipated Discharge: Today
Subjective/Interval History
-
Date of Service: February 20, 2024
No overnight events
no bowel movements overnight
no nausea or vomiting. tolerating diet
Objective Data
-
Labs:
Laboratory Results
02/20/24 02/20/24
09:30 10:15
WBC Cancelled Pending
Hgb Cancelled Pending
Hct Cancelled Pending
Plt Count Cancelled Pending
Vital Signs:
Vital Signs
Temp Pulse Resp BP Pulse Ox
97.9 F 78 16 125/67 96
02/20/24 07:30 02/20/24 07:30 02/20/24 07:30 02/20/24 07:30 02/20/24 07:30
I&O
02/19/24 02/20/24 02/21/24
06:59 06:59 06:59
Intake Total 4240 / 4240 1170 / 1170
Output Total 1725 / 1725
Balance 2515 / 2515 1170 / 1170
[2024-02-20 12:15] VITALS: BP 124/65
== END 2024-02-20 14:27 | disposition home or self-care (01) | DRG 378 ==
LOC: 3 WEST ACU 12:19
PROVIDERS: Internal Medicine Gastroenterology; Physician Assistant Medical; ADMITTING PHYSICIAN Hospitalist; ATTENDING PHYSICIAN Hospitalist; CONSULT PHYSICIAN Internal Medicine; EMERGENCY PHYSICIAN Emergency Medicine; FAMILY PHYSICIAN Family Medicine
PROC: 30233N1 Transfusion of Nonautologous Red Blood Cells into Peripheral Vein, Percutaneous Approach (ICD-10-PCS; 2024-02-18)
PROC: 0DJ08ZZ Inspection of Upper Intestinal Tract, Via Natural or Artificial Opening Endoscopic (ICD-10-PCS; 2024-02-18)
DX: K92.1 Melena (principal); D62 Acute posthemorrhagic anemia; D63.1 Anemia in chronic kidney disease; N18.30 Chronic kidney disease, stage 3 unspecified; I12.9 Hypertensive chronic kidney disease with stage 1 through stage 4 chronic kidney disease, or unspecified chronic kidney disease; E66.9 Obesity, unspecified; Z68.34 Body mass index [BMI] 34.0-34.9, adult; K22.89 Other specified disease of esophagus; K57.30 Diverticulosis of large intestine without perforation or abscess without bleeding; K64.8 Other hemorrhoids; K44.9 Diaphragmatic hernia without obstruction or gangrene; I25.10 Atherosclerotic heart disease of native coronary artery without angina pectoris; K21.9 Gastro-esophageal reflux disease without esophagitis; E78.00 Pure hypercholesterolemia, unspecified; E87.5 Hyperkalemia; M75.121 Complete rotator cuff tear or rupture of right shoulder, not specified as traumatic; N28.1 Cyst of kidney, acquired; N20.0 Calculus of kidney; K80.20 Calculus of gallbladder without cholecystitis without obstruction; H91.90 Unspecified hearing loss, unspecified ear; D72.829 Elevated white blood cell count, unspecified; R00.0 Tachycardia, unspecified; Z79.82 Long term (current) use of aspirin; Z79.899 Other long term (current) drug therapy; Z86.010 Personal history of colon polyps; Z87.19 Personal history of other diseases of the digestive system; Z95.1 Presence of aortocoronary bypass graft; Z87.891 Personal history of nicotine dependence; Z82.49 Family history of ischemic heart disease and other diseases of the circulatory system
CPT/HCPCS: 80048; 80053; 83036; 85014; 85018; 85025; 85027; 85610; 85730; 86850; 86900; 86901; 86920; 93005; 96361; 96365; 96366; 97162; 97165; 99284; P9016